=== PATIENT | female | born 1995 | race Caucasian/White ===

== ENCOUNTER 2018-03-21 02:20 | Inpatient (IN) | payer MEDICAID, OTHER ==
[~2018-03-21] VITALS: Ht 134.6 cm; Wt 54.4 kg
[2018-03-21] MEDS ORDERED: FERR236T3 MT (02:54)
[2018-03-21] MEDS ORDERED: PREN1TAB78 MT (02:54)
[2018-03-21] MEDS ORDERED: NALOXONE HCL 0.4 MG/ML 1ML VIAL IM PRN (03:15)
[2018-03-21] MEDS ORDERED: METHYLERGONOVINE MALEATE 0.2 MG/ML IM PRN (03:15)
[2018-03-21] MEDS ORDERED: LIDOCAINE HCL 1% 20ML VIAL (Pyxis) INJ INFIL SCH (03:15)
[2018-03-21] MEDS ORDERED: PENICILLIN G POTASSIUM 5 MMU in DEXT 5% WATER 100 ML IV SCH (03:30)
[2018-03-21] MEDS: LACTATED RINGERS 1,000 ML IV SCH ×2 (03:50→05:35)
[2018-03-21] MEDS: DEXT 5%/LR + PITOCIN 20UNITS/L 1,000 ML IV SCH ×2 (04:08→12:36)
[2018-03-21] MEDS: BUTORPHANOL TARTRATE 2 MG/ML VIAL IV PRN ×2 (04:30→06:49)
[2018-03-21 04:52] LABS: BASOPHILS % 0.4 % (0.0-2.0); EOSINOPHILS % 0.5 % (0.0-5.0); HEMOGLOBIN. 11.1 g/dL (12.0-16.0); LYMPHOCYTES % 22.6 % (20.0-50.0); MEAN CORPUSCULAR HEMOGLOBIN 27.4 pg (28.0-32.0); MEAN CORPUSCULAR VOLUME 84.1 fL (81.0-99.0); MONOCYTES % 5.3 % (2.0-8.0); NEUTROPHILS % 71.2 % (40.0-76.0); PLATELET 190 x1000/uL (130-400); RED BLOOD CELL COUNT 4.04 mill/uL (4.2-5.4); RED CELL DISTRIBUTION WIDTH 15.6 % (11.6-14.6)
[2018-03-21 04:58] LABS: CLARITY URINE CLEAR (CLEAR); COLOR URINE YELLOW (YELLOW); KETONES URINE NEGATIVE (NEGATIVE); LEUKOCYTE ESTERASE URINE TRACE (NEGATIVE); NITRITE URINE NEGATIVE (NEGATIVE); OCCULT BLOOD URINE TRACE (NEGATIVE); PROTEIN URINE 2+ (NEGATIVE); SPECIFIC GRAVITY URINE 1.019 (1.005-1.030)
[2018-03-21 05:42] LABS: INR 0.9; PARTIAL THROMBOPLASTIN TIME 26.8 sec (23.4-31.0); PROTHROMBIN TIME 9.5 sec (9.1-11.1)
[2018-03-21 05:45] LABS: *BARBITURATES SCREEN URINE NEGATIVE (NEGATIVE); *BENZODIAZEPINES SCREEN URINE NEGATIVE (NEGATIVE); *COCAINE SCREEN URINE NEGATIVE (NEGATIVE); CANNABINOID URINE SCREEN NEGATIVE (NEGATIVE); PHENCYCLIDINE URINE SCREEN NEGATIVE (NEGATIVE)
[2018-03-21 05:46] LABS: METHADONE URINE SCREEN NEGATIVE (NEGATIVE); OPIATES URINE SCREEN NEGATIVE (NEGATIVE)
[2018-03-21 06:06] LABS: *AMPHETAMINES SCREEN URINE PRESUMTIVE POSITIVE (NEGATIVE)
[2018-03-21 06:18] LABS: HEPATITIS B SURFACE ANTIGEN NEGATIVE
[2018-03-21] MEDS ORDERED: PENICILLIN G POTASSIUM 2.5 MMU in DEXTROSE 5% WATER 50 ML IV SCH (08:00)
[2018-03-21] MEDS ORDERED: INFLUENZA VIRUS VACCINE(AFLURIA) 0.5ML SYR IM ONE (10:00)
[2018-03-21] MEDS ORDERED: BENZOCAINE/LANOLIN/ALOE VERA SPRAY TOP PRN (12:15)
[2018-03-21] MEDS ORDERED: GLYCERIN/WITCH HAZEL LEAF MEDICATED PAD TOP PRN (12:15)
[2018-03-21] MEDS ORDERED: BISACODYL 10MG SUPP PR PRN (12:15)
[2018-03-21] MEDS ORDERED: IBUPROFEN 400MG TABLET PO PRN (12:15)
[2018-03-21] MEDS ORDERED: HEMORRHOIDAL SUPP PR PRN (12:15)
[2018-03-21] MEDS ORDERED: DIPHENHYDRAMINE 25MG CAPSULE PO PRN (12:15)
[2018-03-21] MEDS ORDERED: LANOLIN OINT 0.25 GM TUBE TOP PRN (12:15)
[2018-03-21] MEDS ORDERED: RHO(D) IMMUNE GLOBULIN 300 MCG/SYR IM PRN (12:15)
[2018-03-21] MEDS ORDERED: ACETAMINOPHEN WITH CODEINE 300/30MG TABLET PO PRN (12:15)
[2018-03-21] MEDS ORDERED: DEXT 5%/LR + PITOCIN 20UNITS/L 1,000 ML IV SCH (12:45)
[2018-03-21 13:10] VITALS: BP 130/86
[2018-03-21 13:40] VITALS: BP 128/68
[2018-03-21 20:00] VITALS: BP 122/85
[2018-03-21] MEDS: IBUPROFEN 800MG TABLET PO PRN (20:26)
[2018-03-21] MEDS: DOCUSATE SODIUM 100MG CAPSULE PO SCH (21:32)
[2018-03-22 03:45] VITALS: BP 128/82
[2018-03-22] MEDS: IBUPROFEN 800MG TABLET PO PRN (03:54)
[2018-03-22 07:30] LABS: BASOPHILS % 0.4 % (0.0-2.0); HEMATOCRIT. 32.2 % (36.0-48.0); HEMOGLOBIN. 10.2 g/dL (12.0-16.0); LYMPHOCYTES % 22.7 % (20.0-50.0); MEAN CORPUSCULAR HEMOGLOBIN 26.7 pg (28.0-32.0); MEAN CORPUSCULAR VOLUME 84.1 fL (81.0-99.0); MEAN PLATELET VOLUME 10.1 fl (7.4-10.4); NEUTROPHILS % 67.9 % (40.0-76.0); PLATELET 169 x1000/uL (130-400); RED BLOOD CELL COUNT 3.83 mill/uL (4.2-5.4); RED CELL DISTRIBUTION WIDTH 15.3 % (11.6-14.6)
[2018-03-22 08:00] VITALS: BP 135/80
[2018-03-22] MEDS ORDERED: PRENATAL VIT/FE FUMARATE/FA TABLET PO SCH (09:00)
[2018-03-22] MEDS: FERROUS SULFATE 325MG TABLET PO SCH ×3 (10:09→17:30)
[2018-03-22 16:00] VITALS: BP 146/88
[2018-03-22] MEDS: DOCUSATE SODIUM 100MG CAPSULE PO SCH (21:00)
[2018-03-22 21:30] VITALS: BP 130/91
[2018-03-23 05:15] VITALS: BP 130/89
[2018-03-23 08:27] VITALS: BP 122/85
[2018-03-25 10:13] LABS: AMPHETAMINE CONF URINE Positive (.)
== END 2018-03-23 16:42 | disposition home or self-care (01) | DRG 560 ==
LOC: OBSVTOIN 02:20 → 8 EST LDRP 02:20 → 8EST 13:12
PROVIDERS: ADMIT Specialist; ATTEND Specialist
PROC: 10E0XZZ Delivery of Products of Conception, External Approach (ICD-10-PCS; principal; 2018-03-21)
PROC: 0HQ9XZZ Repair Perineum Skin, External Approach (ICD-10-PCS; 2018-03-21)
DX: O99.324 Drug use complicating childbirth (principal); F15.10 Other stimulant abuse, uncomplicated; O70.0 First degree perineal laceration during delivery; Z37.0 Single live birth; Z3A.39 39 weeks gestation of pregnancy
CPT/HCPCS: 36415; 80305; 80307; 86592; 86703; 86762; 86850; 86900; 87340; 99281; J0595; J2540; J2590; J3490; J7060; J7120

== ENCOUNTER 2019-02-01 08:27 | Emergency (ER) | payer OTHER ==
[~2019-02-01] VITALS: Ht 134.6 cm; Wt 57.0 kg
[~2019-02-01 08:27] MED LIST: FERR236T3 MT; PREN1TAB78 MT
[2019-02-01 08:57] VITALS: BP 127/82
== END 2019-02-01 09:57 | disposition home or self-care (01) ==
LOC: ER 08:27
DX: M79.641 Pain in right hand (principal)
CPT/HCPCS: 81025; 99282